=== PATIENT | male | born 1955 | race Caucasian/White ===

== ENCOUNTER 2016-11-05 07:01 | Outpatient (CLI) | payer OTHER ==
[~2016-11-05 07:01] MED LIST: BENAZEPRIL HCL/1 TA2 PO; MULTIPLE VITAMIN PO; NORCO1 TA1 PO; SIMVASTATIN40 MG PO; VISTARIL25 MG PO
== END 2016-11-05 23:00 ==
LOC: LAB SRH 07:01
DX: Z00.00 Encounter for general adult medical examination without abnormal findings (principal); R73.09 Other abnormal glucose
CPT/HCPCS: 90074; 90100; 91286; 92690; 95059

== ENCOUNTER 2017-02-18 08:20 | Outpatient (CLI) | payer OTHER | END 2017-02-18 23:00 | disposition home or self-care (01) | LOC: LAB SRH 08:20 | DX: R73.09 Other abnormal glucose (principal); I10 Essential (primary) hypertension | CPT/HCPCS: 90047; 90074; 91286 ==